=== PATIENT | male | born 1965 | race Caucasian/White ===

== ENCOUNTER 2017-07-03 05:27 | Inpatient (IN) | payer BC, MEDICARE ==
[2017-07-03] MEDS ORDERED: Acetaminophen 500 MG Tab PO ONE (05:32)
[2017-07-03] MEDS ORDERED: Scopolamine 1.5 MG Transdermal Patch TRDERM ONE (05:32)
[2017-07-03] MEDS ORDERED: Gabapentin 300 MG Cap PO ONE (05:32)
[2017-07-03] MEDS ORDERED: Celecoxib 200 MG Cap PO ONE (05:32)
[2017-07-03] MEDS ORDERED: Dextrose 5%-Lactated Ringers 1,000 ML IV SCH ×3 (05:34→23:15)
[2017-07-03] MEDS ORDERED: cefOXitin 2 GM in Sodium Chloride 0.9% 50 ML IV ONE ×2 (05:35→07:15)
[2017-07-03] MEDS ORDERED: cefOXitin 2 GM Vial ONE (06:45)
[2017-07-03] MEDS ORDERED: fentaNYL 250 MCG/5 ML SDV ONE ×2 (07:04→07:42)
[2017-07-03] MEDS ORDERED: Ondansetron 4 MG/2 ML SDV ONE (07:04)
[2017-07-03] MEDS ORDERED: Rocuronium 50 MG/5 ML Vial ONE ×2 (07:04→08:28)
[2017-07-03] MEDS ORDERED: Succinylcholine 200 MG/10 ML MDV ONE (07:04)
[2017-07-03] MEDS ORDERED: Propofol 200 MG/20 ML SDV ONE (07:04)
[2017-07-03] MEDS ORDERED: Neostigmine Methylsulfate 1 MG/ML 5 ML Syringe ONE (07:04)
[2017-07-03] MEDS ORDERED: Dexamethasone 4 MG/ML SDV ONE (07:04)
[2017-07-03] MEDS ORDERED: Glycopyrrolate 0.2 MG/ML 5 ML MDV ONE (07:04)
[2017-07-03] MEDS ORDERED: Albuterol/Ipratropium 3.0-0.5 MG/3 ML Neb Soln NEB ONE (07:05)
[2017-07-03] MEDS ORDERED: Ketamine 500 MG/5 ML MDV IV SCH (07:30)
[2017-07-03] MEDS ORDERED: Ropivacaine 60 ML, Dexamethasone 8 MG, EPINEPHrine 0.4 MG, Sodium Chloride 0.9% 17.6 ML NERVRT SCH ×4 (07:30)
[2017-07-03] MEDS ORDERED: Lidocaine 2% 100 MG/5 ML Syringe IVPUSH ONE (07:30)
[2017-07-03] MEDS ORDERED: Lidocaine 0.4%/D5W 2 GM/500 ML BAG IV SCH (07:30)
[2017-07-03] MEDS ORDERED: Insulin Aspart 100 Units/ML 3 ML Pen SUBCUT ONE ×2 (10:30→16:29)
[2017-07-03] MEDS: Insulin Aspart 100 Units/ML 3 ML Pen SUBCUT PRN ×2 (11:54→22:16)
[2017-07-03] MEDS ORDERED: Metoclopramide 10 MG/2 ML SDV IVPUSH PRN (12:00)
[2017-07-03] MEDS ORDERED: 50% Dextrose in Water 50 ML Syringe IVPUSH PRN (12:00)
[2017-07-03] MEDS ORDERED: Glucagon,Human Recombinant 1 MG Vial IM PRN (12:00)
[2017-07-03] MEDS ORDERED: Labetalol 20 MG/4 ML Syringe IVPUSH PRN (12:00)
[2017-07-03] MEDS ORDERED: diphenhydrAMINE 50 MG/ML SDV IVPUSH PRN (12:00)
[2017-07-03] MEDS ORDERED: Pantoprazole 40 MG Vial IVPUSH SCH (12:00)
[2017-07-03] MEDS ORDERED: Ondansetron 4 MG/2 ML SDV IVPUSH PRN (12:00)
[2017-07-03] MEDS ORDERED: hydrOXYzine HCl 100 MG/2 ML SDV IM PRN (12:00)
[2017-07-03] MEDS: Acetaminophen Soln 650 MG/20.3 ML UD Cup PO SCH ×2 (12:38→17:55)
[2017-07-03] MEDS: cefOXitin 2 GM in Sodium Chloride 0.9% 50 ML IV SCH ×2 (14:01→20:23)
[2017-07-03] MEDS: Gabapentin 250 MG/5 ML Solution ML 470 ML Bottle PO SCH ×2 (14:01→20:22)
[2017-07-03] MEDS: MVI, Adult with Vitamin K 10 ML, Thiamine 200 MG, Chromium/Copper/Mang/Selen/Zn 1 ML in... IV SCH ×8 (14:49→15:40)
[2017-07-03] MEDS: Heparin Sodium 5,000 Units/ML Vial SUBCUT SCH (16:01)
[2017-07-03] MEDS ORDERED: Insulin Detemir 100 Units/ML 3 ML Pen SUBCUT ONE (16:29)
[2017-07-03] MEDS: Metoprolol Tartrate 50 MG Tab PO SCH (20:29)
[2017-07-04] MEDS: Acetaminophen Soln 650 MG/20.3 ML UD Cup PO SCH ×6 (00:12→23:42)
[2017-07-04] MEDS: Heparin Sodium 5,000 Units/ML Vial SUBCUT SCH ×4 (00:12→23:41)
[2017-07-04] MEDS: cefOXitin 2 GM in Sodium Chloride 0.9% 50 ML IV SCH ×3 (01:30→14:04)
[2017-07-04] MEDS: Insulin Aspart 100 Units/ML 3 ML Pen SUBCUT PRN ×4 (04:34→23:41)
[2017-07-04] MEDS ORDERED: Iohexol 647 MG/ML 50 ML SDV PO SCH (05:30)
--- NOTE | 2017-07-04 06:53 | PCM.SURGPN ---
- General Info Date of Service: 07/04/17 Date of Surgery/Procedure: 07/03/17 POD#: 1 Functional Status: Reports: Pain Controlled, Tolerating Diet (step 1 diet), Ambulating, Urinating - Review of Systems General: Reports: No Symptoms HEENT: Reports: No Symptoms Pulmonary: Reports: No Symptoms Cardiovascular: Reports: No Symptoms Gastrointestinal: Reports: Abdominal Pain (LLQ) Genitourinary: Reports: No Symptoms Musculoskeletal: Reports: No Symptoms Skin: Reports: No Symptoms Neurological: Reports: No Symptoms Psychiatric: Reports: No Symptoms Systems Review Comment:: Patient reports that he is tired today but feeling well. He states that he has been up walking and using his IS. He denies flatus. - Patient Data Vitals - Most Recent: Last Vital Signs Temp 36.6 C 07/04/17 04:00 Pulse 77 07/04/17 06:00 Resp 18 07/04/17 06:00 BP 126/71 07/04/17 06:00 Pulse Ox 92 L 07/04/17 06:00 Weight - Most Recent: 140.977 kg I&O - Last 24 Hours: Intake & Output 07/03/17 07/03/17 07/04/17 14:59 22:59 06:59 Intake Total 661 1454 1382 Output Total 65 2225 2110 Balance 464 -951 -207 Lab Results Last 24 Hrs: Laboratory Results - last 24 hr 07/03/17 Range/Units 05:50 Hemoglobin A1c 8.7 H (4.5-6.2) % Med Orders - Current: Current Medications Acetaminophen (Tylenol) 650 mg PO Q6H [facility] Last Admin: 07/04/17 05:42 Dose: 650 mg Celecoxib (Celebrex) 200 mg PO DAILY@0800 [facility] Cyanocobalamin (Vitamin B12) 1,000 mcg IM ONETIME ONE Stop: 07/05/17 09:01 Dextrose/Water (Dextrose 50% In Water) 50 ml IVPUSH ONETIME PRN PRN Reason: ACCUCHECK LESS THAN 70 Diphenhydramine HCl (Benadryl) 25 - 50 mg IVPUSH Q4H PRN PRN Reason: ITCHING Gabapentin (Neurontin) 300 mg PO TID [facility] Last Admin: 07/03/17 20:22 Dose: 300 mg Glucagon (Glucagen) 1 mg IM ONETIME PRN PRN Reason: ACCUCHECK LESS THAN 70 Heparin Sodium (Porcine) (Heparin Sodium) 5,000 units SUBCUT Q8H [facility] Last Admin: 07/04/17 00:12 Dose: 5,000 units Hydroxyzine HCl (Vistaril) 75 - 100 mg IM Q4H PRN PRN Reason: pain Multivitamins/Minerals 10 ml/Thiamine HCl 200 mg/ Chromium/Copper/Manganese/ Seleni/Zn 1 ml/ Dextrose/Lactated Ringer's 1,013 mls @ 174.999 mls/hr IV DAILY@ 1600 [facility] Last Admin: 07/03/17 15:40 Dose: Not Given Cefoxitin Sodium 2 gm/ Sodium (Chloride) 50 mls @ 100 mls/hr IV Q6H [facility] Stop: 07/04/17 14:29 Last Admin: 07/04/17 01:30 Dose: 100 mls/hr Dextrose/Lactated Ringer's (Dextrose 5%-Lactated Ringers) 1,000 mls @ 80 mls/ hr IV ASDIRECTED [facility] Insulin Aspart (Novolog) 0 unit SUBCUT Q6H PRN; Protocol PRN Reason: PER CORRECTIONAL DOSING Last Admin: 07/04/17 04:34 Dose: 5 units Iohexol (Omnipaque-300) 50 ml PO .ASDIRECTED [facility] Last Admin: 07/04/17 06:07 Dose: 50 ml Labetalol HCl (Normodyne) 5 - 15 mg IVPUSH Q1H PRN PRN Reason: SBP over 160 OR DBP over 95 Metoclopramide HCl (Reglan) 10 mg IVPUSH Q6H PRN PRN Reason: NAUSEA NOT CONTROL BY ZOFRAN Metoprolol Tartrate (Lopressor) 50 mg PO BID [facility] Last Admin: 07/03/17 20:29 Dose: 50 mg Miscellaneous Information (Remove Patch) 1 ea TRDERM ONETIME ONE Stop: 07/05/17 10:01 Non-Formulary Medication (Nf Drug) 1 each TOP DAILY [facility] Scopolamine Patch (Check) 1 each TOP DAILY [facility] Stop: 07/05/17 12:01 Ondansetron HCl (Zofran) 4 mg IVPUSH Q4H PRN PRN Reason: Nausea/Vomiting Pantoprazole Sodium (Protonix Iv) 40 mg IVPUSH Q24H [facility] Last Admin: 07/03/17 12:35 Dose: 40 mg Discontinued Medications Acetaminophen (Tylenol Extra Strength) 1,000 mg PO ONETIME ONE Stop: 07/03/17 05:33 Last Admin: 07/03/17 06:25 Dose: 1,000 mg Albuterol/Ipratropium (Duoneb 3.0-0.5 Mg/3 Ml) 3 ml NEB ONETIME ONE Stop: 07/03/17 07:06 Last Admin: 07/03/17 07:12 Dose: 3 ml Cefoxitin Sodium (Mefoxin) Confirm Administered Dose 2 gm .ROUTE .STK-MED ONE Stop: 07/03/17 06:46 Last Admin: 07/03/17 09:15 Dose: 2 gm Celecoxib (Celebrex) 200 mg PO ONETIME ONE Stop: 07/03/17 05:33 Last Admin: 07/03/17 06:25 Dose: 200 mg Ropivacaine 60 ml/Dexamethasone 8 mg/Epinephrine HCl 0.4 mg/ Sodium Chloride 17.6 ml 0 ml NERVRT ASDIRECTED [facility] Last Admin: 07/03/17 07:50 Dose: 80 syringe Dexamethasone (Dexamethasone) Confirm Administered Dose 4 mg .ROUTE .STK-MED ONE Stop: 07/03/17 07:05 Fentanyl (Sublimaze) Confirm Administered Dose 250 mcg .ROUTE .STK-MED ONE Stop: 07/03/17 07:05 Fentanyl (Sublimaze) Confirm Administered Dose 250 mcg .ROUTE .STK-MED ONE Stop: 07/03/17 07:43 Gabapentin (Neurontin) 300 mg PO ONETIME ONE Stop: 07/03/17 05:33 Last Admin: 07/03/17 06:25 Dose: 300 mg Glycopyrrolate (Robinul) Confirm Administered Dose 1 mg .ROUTE .STK-MED ONE Stop: 07/03/17 07:05 Lidocaine HCl/Dextrose (Lidocaine 2 Gm/D5w 500 Ml) 2 gm in 500 mls @ 30 mls/hr IV .[id number] [facility] Stop: 07/04/17 00:09 Last Admin: 07/03/17 11:18 Dose: 2 mg/min, 30 mls/hr Ketamine HCl 100 mg/ Sodium (Chloride) 100 mls @ 21.6 mls/hr IV ASDIRECTED [facility] Dextrose/Lactated Ringer's (Dextrose 5%-Lactated Ringers) 1,000 mls @ 100 mls/ hr IV ASDIRECTED [facility] Last Admin: 07/03/17 06:58 Dose: 100 mls/hr Cefoxitin Sodium 2 gm/ Sodium (Chloride) 50 mls @ 100 mls/hr IV ONETIME ONE Stop: 07/03/17 07:44 Last Admin: 07/03/17 12:35 Dose: Not Given Insulin Human Regular 100 unit (/ Sodium Chloride) 100 mls @ 0 mls/hr IV TITRATE [facility]; Protocol Dextrose/Lactated Ringer's (Dextrose 5%-Lactated Ringers) 1,000 mls @ 175.004 mls/hr IV ASDIRECTED [facility] Last Admin: 07/03/17 20:25 Dose: 175.004 mls/hr Insulin Aspart (Novolog) 5 unit SUBCUT ONETIME ONE Stop: 07/03/17 10:31 Last Admin: 07/03/17 12:35 Dose: Not Given Insulin Aspart (Novolog) 20 unit SUBCUT ONETIME ONE Stop: 07/03/17 16:30 Last Admin: 07/03/17 16:46 Dose: 20 units Insulin Detemir (Levemir) 12 unit SUBCUT ONETIME ONE Stop: 07/03/17 16:30 Last Admin: 07/03/17 16:45 Dose: 12 units Ketamine HCl (Ketalar) 36 mg IV ASDIRECTED [facility] Lidocaine HCl (Xylocaine 2%) 145 mg IVPUSH ONETIME ONE Stop: 07/03/17 07:31 Last Admin: 07/03/17 11:30 Dose: Not Given Neostigmine Methylsulfate (Neostigmine) Confirm Administered Dose 5 mg .ROUTE .STK-MED ONE Stop: 07/03/17 07:05 Ondansetron HCl (Zofran) Confirm Administered Dose 4 mg .ROUTE .STK-MED ONE Stop: 07/03/17 07:05 Propofol (Diprivan 20 Ml) Confirm Administered Dose 200 mg .ROUTE .STK-MED ONE Stop: 07/03/17 07:05 Rocuronium [place] (Zemuron) Confirm Administered Dose 50 mg .ROUTE .STK-MED ONE Stop: 07/03/17 07:05 Rocuronium [place] (Zemuron) Confirm Administered Dose 50 mg .ROUTE .STK-MED ONE Stop: 04/30/18 08:29 Scopolamine (Transderm-Scop) 1.5 mg TRDERM Q72H ONE Stop: 07/03/17 05:33 Last Admin: 07/03/17 06:25 Dose: 1.5 mg Succinylcholine Chloride (Quelicin) Confirm Administered Dose 200 mg .ROUTE .STK -MED ONE Stop: 07/03/17 07:05 - Exam Wound/Incisions: Healing Well, No Drainage Quality Assessment: Urine Catheter, DVT Prophylaxis (SCDs) General: Alert, Oriented, Cooperative, No Acute Distress HEENT: Pupils Equal, Pupils Reactive Neck: Supple, Trachea Midline Lungs: Clear to Auscultation, Normal Respiratory Effort Cardiovascular: Regular Rate, Regular Rhythm GI/Abdominal Exam: Normal Bowel Sounds, Soft, Tender (LLQ with palpation) Extremities: Normal Inspection, Non-Tender, No Pedal Edema Skin: Warm, Dry, Intact Neurological: No New Focal Deficit Psy/Mental Status: Alert, Normal Affect, Normal Mood - Problem List & Annotations (1) Status post gastric bypass for obesity SNOMED Code(s): 217758347, 180735715, 578915345, [id number] Code(s): Z98.84 - BARIATRIC SURGERY STATUS Status: Acute Current Visit: Yes - Problem List Review Problem List Initiated/Reviewed/Updated: Yes - My Orders Last 24 Hours: Active Orders 24 hr Category Date Time Status Patient Status [ADT] Routine ADT 07/03/17 10:10 Active Ambulate [RC] ASDIRECTED Care 07/03/17 11:40 Active Cardiac Monitoring Discontinue [RC] Click to Edit Care 07/04/17 09:00 Active Cardiac Monitoring [RC] .As Directed Care 07/03/17 11:40 Active Communication Order [RC] Q4H Care 07/03/17 11:40 Active Communication Order [RC] ROUTINE Care 07/03/17 11:40 Active Head of Bed Elevation [RC] CONTINUOUS Care 07/03/17 11:40 Active Insert Urinary Catheter [OM.PC] Per Unit Routine Care 07/03/17 11:40 Ordered Insert Urinary Catheter [OM.PC] Per Unit Routine Care 07/03/17 11:40 Ordered Intake and Output [RC] ASDIRECTED Care 07/03/17 11:40 Active Notify Provider Intake and Out [RC] ASDIRECTED Care 07/03/17 11:40 Active Notify Provider [RC] PRN Care 07/03/17 11:40 Active Oxygen Therapy [RC] ASDIRECTED Care 07/03/17 11:40 Active Pulse Oximetry [RC] ASDIRECTED Care 07/03/17 11:40 Active RT BiPAP/CPAP [RC] ASDIRECTED Care 07/03/17 11:40 Active RT Incentive Spirometry [RC] ASDIRECTED Care 07/03/17 11:40 Active Turn, Cough, Deep Breathe [RC] Q1HWA Care 07/03/17 11:40 Active Up to Chair [RC] TIDMEALS Care 07/03/17 11:40 Active Urinary Catheter Assessment [RC] ASDIRECTED Care 07/03/17 11:41 Active Vital Signs [RC] Q1H Care 07/03/17 13:00 Active Consult to Bariatric Services [CONS] Routine Cons 07/03/17 11:40 Active Consult to [place] [CONS] Routine Cons 07/03/17 11:40 Active Consult to Pharmacy [CONS] Routine Cons 07/03/17 11:40 Active Respiratory Care Assess and Treatment [CONS] Routine Cons 07/03/17 11:40 Active Bariatric Diet [DIET] Diet 07/04/17 Breakfast Active UGI wo KUB [CR] Timed Exams 07/04/17 04:00 Ordered GLUCOSE POC LAB TO COLLECT [POC] Q6H Lab 07/04/17 10:00 Ordered GLUCOSE POC LAB TO COLLECT [POC] Q6H Lab 07/04/17 16:00 Ordered GLUCOSE POC LAB TO COLLECT [POC] Q6H Lab 07/04/17 22:00 Ordered GLUCOSE POC LAB TO COLLECT [POC] Q6H Lab 07/05/17 04:00 Ordered GLUCOSE POC LAB TO COLLECT [POC] Q6H Lab 07/05/17 10:00 Ordered GLUCOSE POC LAB TO COLLECT [POC] Q6H Lab 07/05/17 16:00 Ordered GLUCOSE POC LAB TO COLLECT [POC] Q6H Lab 07/05/17 22:00 Ordered GLUCOSE POC LAB TO COLLECT [POC] Q6H Lab 07/06/17 04:00 Ordered GLUCOSE POC LAB TO COLLECT [POC] Q6H Lab 07/06/17 10:00 Ordered Acetaminophen [Tylenol] Med 07/03/17 12:00 Active 650 mg PO Q6H Celecoxib [CeleBREX] Med 07/04/17 08:00 Active 200 mg PO DAILY@0800 Cyanocobalamin (Vitamin B12) [Vitamin B12] Med 07/05/17 09:00 Once 1,000 mcg IM ONETIME ONE Dextrose 5%-Lactated Ringers 1,000 ml Med 07/03/17 23:15 Active IV ASDIRECTED Dextrose 50% in Water Med 07/03/17 12:00 Active 50 ml IVPUSH ONETIME PRN Gabapentin [Neurontin] Med 07/03/17 14:00 Active 300 mg PO TID Glucagon,Human Recombinant [GlucaGen] Med 07/03/17 12:00 Active 1 mg IM ONETIME PRN Heparin Sodium Med 07/03/17 16:00 Active 5,000 units SUBCUT Q8H Insulin Aspart [NovoLOG] Med 07/03/17 12:00 Active 0 unit SUBCUT Q6H PRN Iohexol [Omnipaque-300] Med 07/04/17 05:30 Active 50 ml PO .ASDIRECTED Labetalol [Normodyne] Med 07/03/17 12:00 Active 5 - 15 mg IVPUSH Q1H PRN MVI, Adult with Vitamin K [Infuvite Adult] 10 ml Med 07/03/17 16:00 Active Thiamine [Vitamin B-1] 200 mg Chromium/Copper/[place]/Selen/Zn [Multitrace-5 Concentrate ] 1 ml Dextrose 5%-Lactated Ringers 1,000 ml IV DAILY@1600 Metoclopramide [Reglan] Med 07/03/17 12:00 Active 10 mg IVPUSH Q6H PRN Metoprolol Tartrate [Lopressor] Med 07/03/17 21:00 Active 50 mg PO BID Non-Formulary Medication [NF Drug] Med 07/03/17 12:00 Active 1 each TOP DAILY Non-Formulary Medication [NF Drug] Med 07/04/17 09:00 Active 1 each TOP DAILY Ondansetron [Zofran] Med 07/03/17 12:00 Active 4 mg IVPUSH Q4H PRN Pantoprazole [ProTONIX IV] Med 07/03/17 12:00 Active 40 mg IVPUSH Q24H Remove Patch Med 07/05/17 10:00 Once 1 ea TRDERM ONETIME ONE cefOXitin [Mefoxin] 2 gm Med 07/03/17 14:00 Active Sodium Chloride 0.9% [Normal Saline] 50 ml IV Q6H diphenhydrAMINE [Benadryl] Med 07/03/17 12:00 Active 25 - 50 mg IVPUSH Q4H PRN hydrOXYzine HCl [Vistaril] Med 07/03/17 12:00 Active 75 - 100 mg IM Q4H PRN Abdominal Binder [OM.PC] Routine Oth 07/03/17 11:40 Ordered Oral Care [OM.PC] BID Oth 07/03/17 11:45 Ordered Oral Care [OM.PC] BID Oth 07/04/17 11:45 Ordered PT Screening [OM.PC] Routine Oth 07/03/17 11:40 Active Sequential Compression Device [OM.PC] Routine Oth 07/03/17 11:40 Ordered Specialty Bed [OM.PC] Routine Oth 07/03/17 11:40 Ordered Resuscitation Status Routine Resus Stat 07/03/17 11:40 Ordered Medication Orders Acetaminophen (Tylenol) 650 mg PO Q6H [facility] Last Admin: 07/04/17 05:42 Dose: 650 mg Admin: 07/04/17 00:12 Dose: 650 mg Admin: 07/03/17 17:55 Dose: 650 mg Admin: 07/03/17 12:38 Dose: 650 mg Celecoxib (Celebrex) 200 mg PO DAILY@0800 [facility] Cyanocobalamin (Vitamin B12) 1,000 mcg IM ONETIME ONE Stop: 07/05/17 09:01 Dextrose/Water (Dextrose 50% In Water) 50 ml IVPUSH ONETIME PRN PRN Reason: ACCUCHECK LESS THAN 70 Diphenhydramine HCl (Benadryl) 25 - 50 mg IVPUSH Q4H PRN PRN Reason: ITCHING Gabapentin (Neurontin) 300 mg PO TID [facility] Last Admin: 07/03/17 20:22 Dose: 300 mg Admin: 07/03/17 14:01 Dose: 300 mg Glucagon (Glucagen) 1 mg IM ONETIME PRN PRN Reason: ACCUCHECK LESS THAN 70 Heparin Sodium (Porcine) (Heparin Sodium) 5,000 units SUBCUT Q8H [facility] Last Admin: 07/04/17 00:12 Dose: 5,000 units Admin: 07/03/17 16:01 Dose: 5,000 units Hydroxyzine HCl (Vistaril) 75 - 100 mg IM Q4H PRN PRN Reason: pain Multivitamins/Minerals 10 ml/Thiamine HCl 200 mg/ Chromium/Copper/Manganese/ Seleni/Zn 1 ml/ Dextrose/Lactated Ringer's 1,013 mls @ 174.999 mls/hr IV DAILY@ 1600 [facility] Last Admin: 07/03/17 15:40 Dose: Admin: 07/03/17 14:49 Dose: 174.999 mls/hr Cefoxitin Sodium 2 gm/ Sodium (Chloride) 50 mls @ 100 mls/hr IV Q6H [facility] Stop: 07/04/17 14:29 Last Admin: 07/04/17 01:30 Dose: 100 mls/hr Admin: 07/03/17 20:23 Dose: 100 mls/hr Admin: 07/03/17 14:01 Dose: 100 mls/hr Dextrose/Lactated Ringer's (Dextrose 5%-Lactated Ringers) 1,000 mls @ 80 mls/ hr IV ASDIRECTED [facility] Insulin Aspart (Novolog) 0 unit SUBCUT Q6H PRN; Protocol PRN Reason: PER CORRECTIONAL DOSING Last Admin: 07/04/17 04:34 Dose: 5 units Admin: 07/03/17 22:16 Dose: 9 units Admin: 07/03/17 11:54 Dose: 9 units Iohexol (Omnipaque-300) 50 ml PO .ASDIRECTED [facility] Last Admin: 07/04/17 06:07 Dose: 50 ml Labetalol HCl (Normodyne) 5 - 15 mg IVPUSH Q1H PRN PRN Reason: SBP over 160 OR DBP over 95 Metoclopramide HCl (Reglan) 10 mg IVPUSH Q6H PRN PRN Reason: NAUSEA NOT CONTROL BY ZOFRAN Metoprolol Tartrate (Lopressor) 50 mg PO BID [facility] Last Admin: 07/03/17 20:29 Dose: 50 mg Miscellaneous Information (Remove Patch) 1 ea TRDERM ONETIME ONE Stop: 07/05/17 10:01 Non-Formulary Medication (Nf Drug) 1 each TOP DAILY [facility] Scopolamine Patch (Check) 1 each TOP DAILY [facility] Stop: 07/05/17 12:01 Ondansetron HCl (Zofran) 4 mg IVPUSH Q4H PRN PRN Reason: Nausea/Vomiting Pantoprazole Sodium (Protonix Iv) 40 mg IVPUSH Q24H [facility] Last Admin: 07/03/17 12:35 Dose: 40 mg - Assessment Assessment (Free Text/Narrative):: S/p laparoscopic amanda-en-y gastric bypass and hiatal hernia repair - Plan Plan (Free Text/Narrative):: -Step 2 diet today. -Flomax 0.4 mg PO this am and 0.4 mg q HS starting tonight - split. -Lasix 20 mg PO q am - intact. -Wellbutrin IR 150 mg PO BID - split. -Flexeril 10 mg PO TID prn for muscle spasms - split. -NTG SL 0.4 mg prn for chest pain. -Lisinopril 20 mg PO daily. -Change IV to LR @ 80 mL/hr. -Remove nunez catheter tomorrow. -Discontinue cardiac monitoring.
[2017-07-04] MEDS ORDERED: Cyclobenzaprine 10 MG Tab PO PRN (08:31)
[2017-07-04] MEDS ORDERED: Nitroglycerin 0.4 MG Tab.SL SL PRN (08:33)
[2017-07-04] MEDS ORDERED: Lactated Ringers 1,000 ML IV SCH (08:45)
[2017-07-04] MEDS: Celecoxib 200 MG Cap PO SCH (08:59)
[2017-07-04] MEDS ORDERED: Tamsulosin 0.4 MG Cap.ER PO ONE (09:00)
[2017-07-04] MEDS: Metoprolol Tartrate 50 MG Tab PO SCH ×2 (09:00→21:10)
[2017-07-04] MEDS ORDERED: Non-Formulary Medication 1 Each TOP SCH (09:00)
[2017-07-04] MEDS: Gabapentin 250 MG/5 ML Solution ML 470 ML Bottle PO SCH ×3 (09:05→21:09)
--- NOTE | 2017-07-04 09:13 | CR ---
UGI wo KUB CLINICAL HISTORY: Status post Imelda-en-Y FINDINGS: There is mild gaseous distention of the Imelda loop. There is no evidence of obstruction. No extravasation is seen. IMPRESSION: Status post Imelda-en-Y with no obstruction or leakage identified
--- NOTE | 2017-07-04 10:44 | PN ---
DATE OF SERVICE: 07/04/2017 The patient has been clinically stable overnight. Initially, blood sugars were quite high, but I think these will come down pretty well today. The patient underwent a laparoscopic Imelda-en-Y gastric bypass yesterday along with repair of hiatal hernia. Clinically, he is doing fairly well. His urine output was very high, and we have already backed down on that. He did retain urine and has a Walton catheter in place. We will give him some Flomax this morning and then begin that at bedtime. I think, his blood sugars are likely going to normalize without any additional active treatment. Otherwise, maximize activity and work with pulmonary toilet. Cem Mesa MD /[id number]
[2017-07-04] MEDS: Lisinopril 20 MG Tab PO SCH (10:52)
[2017-07-04] MEDS: Furosemide 20 MG Tab PO SCH (10:52)
[2017-07-04] MEDS: SCOPOLAMINE PATCH CHECK TOP SCH (10:53)
[2017-07-04] MEDS ORDERED: Pantoprazole 40 MG Delayed-Release Granules 1 Packet PO SCH (11:00)
[2017-07-04] MEDS ORDERED: MVI, Adult with Vitamin K 10 ML, Thiamine 100 MG, Chromium/Copper/Mang/Selen/Zn 1 ML in... IV SCH ×4 (16:00)
[2017-07-04] MEDS ORDERED: Bisacodyl 5 MG Tab PO PRN (18:40)
[2017-07-04] MEDS ORDERED: Magnesium Hydroxide 400 MG/5 ML Susp 30 ML Cup PO ONE (18:45)
[2017-07-04] MEDS ORDERED: Bisacodyl 5 MG Tab PO ONE (18:45)
[2017-07-04] MEDS ORDERED: Tamsulosin 0.4 MG Cap.ER PO SCH (21:00)
[2017-07-05] MEDS: Insulin Aspart 100 Units/ML 3 ML Pen SUBCUT PRN (04:38)
[2017-07-05] MEDS: Furosemide 20 MG Tab PO SCH ×2 (07:43→08:00)
[2017-07-05] MEDS: Acetaminophen Soln 650 MG/20.3 ML UD Cup PO SCH (07:43)
[2017-07-05] MEDS: Celecoxib 200 MG Cap PO SCH (07:43)
[2017-07-05] MEDS: Heparin Sodium 5,000 Units/ML Vial SUBCUT SCH (07:46)
[2017-07-05] MEDS ORDERED: Furosemide 20 MG/2 ML VIAL IVPUSH ONE (08:30)
--- NOTE | 2017-07-05 08:51 | PCM.DCSUM1 ---
Discharge Summary - Hospital Course Free Text/Narrative:: Patient admitted on 07/03/2017 for laparoscopic amanda-en-y gastric bypass Brief History: Patient underwent laparoscopic amanda-en-y gastric bypass and hiatal hernia repair on 07/03/2017. Post-operatively his UGI showed no leak. He has been tolerating his diet well and passing gas. No BM prior to discharge. stated this is normal for him with his spinal injury, and that he takes stool softeners at baseline. He will continue these. He needed a nunez catheter due to difficulty with urination during his admission. He stated that he takes lasix at home to help with this. Lasix was ordered during his stay, and was given on morning of discharge. He was discharged home on metformin 500 mg BID with instructions to check blood sugars. RD saw patient for glucometer administration and education prior to discharge. - Discharge Data Discharge Date: 07/05/17 Discharge Disposition: Home, Self-Care 01 Condition: Good - Discharge Diagnosis/Problem(s) (1) Status post gastric bypass for obesity SNOMED Code(s): 290710385, [id number], [id number], [id number] ICD Code: Z98.84 - BARIATRIC SURGERY STATUS Status: Acute Current Visit: Yes - Patient Summary/Data Consults: Consultations 07/03/17 11:40 Consult to Bariatric Services [CONS] Routine Comment: Consult to Cardiovascular Rn [CONS] Routine Comment: Physician Instructions: Quantity: Consult to Pharmacy [CONS] Routine Comment: Physician Instructions: Quantity: Respiratory Care Assess and Treatment [CONS] Routine Comment: Physician Instructions: Post-Op Pneumonia Prevention - Patient Instructions Diet, Other: Step 2 Gastric Bypass Diet with NO CEREAL until 07/19/17 Activity: As Tolerated, No Lifting Over 10 Pounds (for 2 weeks ) Driving: Do Not Drive (for 1 week ) Showering/Bathing: May Shower Wound/Incision Care: Keep Operative Site/Wound Site Clean and Dry Notify Provider of: Fever, Increased Pain, Nausea and/or Vomiting Other/Special Instructions: Use incentive inspirometer 10 times every hour while awake for 1 week. Check blood sugars twice a day and record results and bring to clinic appointment. Call [facility] at [phone] with results of blood sugars - Discharge Plan Prescriptions/Med Rec: Bisacodyl [Dulcolax] 10 mg PO BID PRN #60 tablet PRN Reason: Constipation Magnesium Hydroxide [Milk of Magnesia] 30 ml PO BID #100 ml metFORMIN [Glucophage XR] 500 mg PO BIDMEALS #60 tab.er Home Medications: Home Meds Aspirin 325 mg PO DAILY 06/29/17 [History] Baclofen 20 mg PO ASDIRECTED 06/29/17 [History] Cyclobenzaprine [Flexeril] 10 mg PO TID PRN 06/29/17 [History] Furosemide [Lasix] 20 mg PO BID 06/29/17 [History] Gabapentin [Neurontin] 300 mg PO TID 06/29/17 [History] Lisinopril 20 mg PO DAILY 06/29/17 [History] Metoprolol Tartrate [Lopressor] 50 mg PO Q12HR 06/29/17 [History] Nitroglycerin 0.3 mg SL ASDIRECTED PRN 06/29/17 [History] Rosuvastatin [Crestor] 40 mg PO DAILY 06/29/17 [History] Tamsulosin HCl [Flomax] 0.4 mg PO DAILY 06/29/17 [History] Teriparatide [Forteo] 0.08 ml SQ DAILY 06/29/17 [History] Varenicline [Chantix] 1 mg PO BIDPC 06/29/17 [History] buPROPion [Wellbutrin SR] 150 mg PO BID 06/29/17 [History] Acetaminophen [Tylenol] 650 mg PO Q6H cup 07/05/17 [Rx] Bisacodyl [Dulcolax] 10 mg PO BID PRN #60 tablet 07/05/17 [Rx] Celecoxib [CeleBREX] 200 mg PO DAILY@0800 cap 07/05/17 [Rx] Magnesium Hydroxide [Milk of Magnesia] 30 ml PO BID #100 ml 07/05/17 [Rx] metFORMIN [Glucophage XR] 500 mg PO BIDMEALS #60 tab.er 07/05/17 [Rx] Referrals: Renetta Tsai PA-C [[facility] [employer]] - 07/18/17 10:00 am ([place], [place]) - General Info Functional Status: Reports: Pain Controlled, Tolerating Diet, Ambulating, Incentive Spirometry - Review of Systems General: Reports: No Symptoms HEENT: Reports: No Symptoms Pulmonary: Reports: No Symptoms Cardiovascular: Reports: No Symptoms Gastrointestinal: Reports: Abdominal Pain (LLQ), Flatus Genitourinary: Reports: Retention (due to spinal injury) Musculoskeletal: Reports: Back Pain (chronic) Skin: Reports: No Symptoms Neurological: Reports: No Symptoms Psychiatric: Reports: No Symptoms Systems Review Comment: Patient reports that he feels well today and is ready for discharge. He states that he needs lasix to help with urination as he experiences retention after his spinal cord injury. He denies having any other concerns at this time. - Patient Data Vitals - Most Recent: Last Vital Signs Temp 37.1 C 07/05/17 07:36 Pulse 88 07/05/17 07:36 Resp 17 07/05/17 07:36 BP 142/61 H 07/05/17 07:36 Pulse Ox 94 L 07/05/17 07:42 Weight - Most Recent: 140.977 kg I&O - Last 24 hours: Intake & Output 07/04/17 07/05/17 07/05/17 22:59 06:59 14:59 Intake Total 988 400 Output Total 770 1210 Balance 218 -810 Med Orders - Current: Current Medications Acetaminophen (Tylenol) 650 mg PO Q6H [facility] Last Admin: 07/05/17 07:43 Dose: 650 mg Bisacodyl (Dulcolax) 10 mg PO BID PRN PRN Reason: Constipation Bupropion HCl (Wellbutrin) 150 mg PO BID [facility] Last Admin: 07/04/17 21:09 Dose: 150 mg Celecoxib (Celebrex) 200 mg PO DAILY@0800 [facility] Last Admin: 07/05/17 07:43 Dose: 200 mg Cyanocobalamin (Vitamin B12) 1,000 mcg IM ONETIME ONE Stop: 07/05/17 09:01 Cyclobenzaprine HCl (Flexeril) 10 mg PO TID PRN PRN Reason: Muscle Spasm Dextrose/Water (Dextrose 50% In Water) 50 ml IVPUSH ONETIME PRN PRN Reason: ACCUCHECK LESS THAN 70 Diphenhydramine HCl (Benadryl) 25 - 50 mg IVPUSH Q4H PRN PRN Reason: ITCHING Furosemide (Lasix) 20 mg PO DAILY [facility] Last Admin: 07/05/17 08:00 Dose: Not Given Gabapentin (Neurontin) 300 mg PO TID [facility] Last Admin: 07/04/17 21:09 Dose: 300 mg Glucagon (Glucagen) 1 mg IM ONETIME PRN PRN Reason: ACCUCHECK LESS THAN 70 Heparin Sodium (Porcine) (Heparin Sodium) 5,000 units SUBCUT Q8H [facility] Last Admin: 07/05/17 07:46 Dose: 5,000 units Hydroxyzine HCl (Vistaril) 75 - 100 mg IM Q4H PRN PRN Reason: pain Multivitamins/Minerals 10 ml/Thiamine HCl 100 mg/ Chromium/Copper/Manganese/ Seleni/Zn 1 ml/ Lactated Ringer's 1,012 mls @ 80 mls/hr IV DAILY@1600 [facility] Last Admin: 07/04/17 17:21 Dose: 80 mls/hr Lactated Ringer's (Ringers, Lactated) 1,000 mls @ 80 mls/hr IV ASDIRECTED [facility] Last Admin: 07/04/17 09:01 Dose: 80 mls/hr Insulin Aspart (Novolog) 0 unit SUBCUT Q6H PRN; Protocol PRN Reason: PER CORRECTIONAL DOSING Last Admin: 07/05/17 04:38 Dose: 7 units Labetalol HCl (Normodyne) 5 - 15 mg IVPUSH Q1H PRN PRN Reason: SBP over 160 OR DBP over 95 Lisinopril (Prinivil) 20 mg PO DAILY [facility] Last Admin: 07/04/17 10:52 Dose: 20 mg Metoclopramide HCl (Reglan) 10 mg IVPUSH Q6H PRN PRN Reason: NAUSEA NOT CONTROL BY ZOFRAN Metoprolol Tartrate (Lopressor) 50 mg PO BID [facility] Last Admin: 07/04/17 21:10 Dose: 50 mg Miscellaneous Information (Remove Patch) 1 ea TRDERM ONETIME ONE Stop: 07/05/17 10:01 Nitroglycerin (Nitrostat) 0.4 mg SL ASDIRECTED PRN PRN Reason: Chest Pain Scopolamine Patch (Check) 1 each TOP DAILY [facility] Stop: 07/05/17 12:01 Last Admin: 07/04/17 10:53 Dose: Not Given Ondansetron HCl (Zofran) 4 mg IVPUSH Q4H PRN PRN Reason: Nausea/Vomiting Pantoprazole Sodium (Protonix Granules) 40 mg PO Q24H [facility] Last Admin: 07/04/17 10:53 Dose: 40 mg Tamsulosin HCl (Flomax) 0.4 mg PO BEDTIME [facility] Last Admin: 07/04/17 21:11 Dose: 0.4 mg Discontinued Medications Acetaminophen (Tylenol Extra Strength) 1,000 mg PO ONETIME ONE Stop: 07/03/17 05:33 Last Admin: 07/03/17 06:25 Dose: 1,000 mg Albuterol/Ipratropium (Duoneb 3.0-0.5 Mg/3 Ml) 3 ml NEB ONETIME ONE Stop: 07/03/17 07:06 Last Admin: 07/03/17 07:12 Dose: 3 ml Bisacodyl (Dulcolax) 10 mg PO ONETIME ONE Stop: 07/04/17 18:46 Last Admin: 07/04/17 18:49 Dose: 10 mg Cefoxitin Sodium (Mefoxin) Confirm Administered Dose 2 gm .ROUTE .STK-MED ONE Stop: 07/03/17 06:46 Last Admin: 07/03/17 09:15 Dose: 2 gm Celecoxib (Celebrex) 200 mg PO ONETIME ONE Stop: 07/03/17 05:33 Last Admin: 07/03/17 06:25 Dose: 200 mg Ropivacaine 60 ml/Dexamethasone 8 mg/Epinephrine HCl 0.4 mg/ Sodium Chloride 17.6 ml 0 ml NERVRT ASDIRECTED [facility] Last Admin: 07/03/17 07:50 Dose: 80 syringe Dexamethasone (Dexamethasone) Confirm Administered Dose 4 mg .ROUTE .STK-MED ONE Stop: 07/03/17 07:05 Fentanyl (Sublimaze) Confirm Administered Dose 250 mcg .ROUTE .STK-MED ONE Stop: 07/03/17 07:05 Fentanyl (Sublimaze) Confirm Administered Dose 250 mcg .ROUTE .STK-MED ONE Stop: 07/03/17 07:43 Furosemide (Lasix) 20 mg IVPUSH ONETIME ONE Stop: 07/05/17 08:31 Gabapentin (Neurontin) 300 mg PO ONETIME ONE Stop: 07/03/17 05:33 Last Admin: 07/03/17 06:25 Dose: 300 mg Glycopyrrolate (Robinul) Confirm Administered Dose 1 mg .ROUTE .STK-MED ONE Stop: 07/03/17 07:05 Lidocaine HCl/Dextrose (Lidocaine 2 Gm/D5w 500 Ml) 2 gm in 500 mls @ 30 mls/hr IV .[id number] [facility] Stop: 07/04/17 00:09 Last Admin: 07/03/17 11:18 Dose: 2 mg/min, 30 mls/hr Ketamine HCl 100 mg/ Sodium (Chloride) 100 mls @ 21.6 mls/hr IV ASDIRECTED [facility] Dextrose/Lactated Ringer's (Dextrose 5%-Lactated Ringers) 1,000 mls @ 100 mls/ hr IV ASDIRECTED [facility] Last Admin: 07/03/17 06:58 Dose: 100 mls/hr Cefoxitin Sodium 2 gm/ Sodium (Chloride) 50 mls @ 100 mls/hr IV ONETIME ONE Stop: 07/03/17 07:44 Last Admin: 07/03/17 12:35 Dose: Not Given Insulin Human Regular 100 unit (/ Sodium Chloride) 100 mls @ 0 mls/hr IV TITRATE [facility]; Protocol Dextrose/Lactated Ringer's (Dextrose 5%-Lactated Ringers) 1,000 mls @ 175.004 mls/hr IV ASDIRECTED [facility] Last Admin: 07/03/17 20:25 Dose: 175.004 mls/hr Multivitamins/Minerals 10 ml/Thiamine HCl 200 mg/ Chromium/Copper/Manganese/ Seleni/Zn 1 ml/ Dextrose/Lactated Ringer's 1,013 mls @ 174.999 mls/hr IV DAILY@ 1600 [facility] Last Admin: 07/03/17 15:40 Dose: Not Given Cefoxitin Sodium 2 gm/ Sodium (Chloride) 50 mls @ 100 mls/hr IV Q6H [facility] Stop: 07/04/17 14:29 Last Admin: 07/04/17 14:04 Dose: 100 mls/hr Dextrose/Lactated Ringer's (Dextrose 5%-Lactated Ringers) 1,000 mls @ 80 mls/ hr IV ASDIRECTED [facility] Insulin Aspart (Novolog) 5 unit SUBCUT ONETIME ONE Stop: 07/03/17 10:31 Last Admin: 07/03/17 12:35 Dose: Not Given Insulin Aspart (Novolog) 20 unit SUBCUT ONETIME ONE Stop: 07/03/17 16:30 Last Admin: 07/03/17 16:46 Dose: 20 units Insulin Detemir (Levemir) 12 unit SUBCUT ONETIME ONE Stop: 07/03/17 16:30 Last Admin: 07/03/17 16:45 Dose: 12 units Iohexol (Omnipaque-300) 50 ml PO .ASDIRECTED [facility] Last Admin: 07/04/17 06:07 Dose: 50 ml Ketamine HCl (Ketalar) 36 mg IV ASDIRECTED [facility] Lidocaine HCl (Xylocaine 2%) 145 mg IVPUSH ONETIME ONE Stop: 07/03/17 07:31 Last Admin: 07/03/17 11:30 Dose: Not Given Magnesium Hydroxide (Milk Of Magnesia) 30 ml PO ONETIME ONE Stop: 07/04/17 18:46 Last Admin: 07/04/17 18:49 Dose: 30 ml Neostigmine Methylsulfate (Neostigmine) Confirm Administered Dose 5 mg .ROUTE .STK-MED ONE Stop: 07/03/17 07:05 Ondansetron HCl (Zofran) Confirm Administered Dose 4 mg .ROUTE .STK-MED ONE Stop: 07/03/17 07:05 Pantoprazole Sodium (Protonix Iv) 40 mg IVPUSH Q24H [facility] Last Admin: 07/03/17 12:35 Dose: 40 mg Propofol (Diprivan 20 Ml) Confirm Administered Dose 200 mg .ROUTE .STK-MED ONE Stop: 07/03/17 07:05 Rocuronium [place] (Zemuron) Confirm Administered Dose 50 mg .ROUTE .STK-MED ONE Stop: 07/03/17 07:05 Rocuronium [place] (Zemuron) Confirm Administered Dose 50 mg .ROUTE .STK-MED ONE Stop: 07/03/17 08:29 Scopolamine (Transderm-Scop) 1.5 mg TRDERM Q72H ONE Stop: 07/03/17 05:33 Last Admin: 07/03/17 06:25 Dose: 1.5 mg Succinylcholine Chloride (Quelicin) Confirm Administered Dose 200 mg .ROUTE .STK -MED ONE Stop: 07/03/17 07:05 Tamsulosin HCl (Flomax) 0.4 mg PO ONETIME ONE Stop: 07/04/17 09:01 Last Admin: 07/04/17 10:52 Dose: 0.4 mg - Exam General: Reports: Alert, Oriented, Cooperative, No Acute Distress HEENT: Reports: Pupils Equal, Pupils Reactive Neck: Reports: Supple, Trachea Midline Lungs: Reports: Clear to Auscultation, Normal Respiratory Effort Cardiovascular: Reports: Regular Rate, Regular Rhythm GI/Abdominal Exam: Normal Bowel Sounds, Soft, Tender (LLQ with palpation. Rates pain 4/10) (Male) Exam: Deferred Rectal (Males) Exam: Deferred Back Exam: Reports: Normal Inspection Extremities: Normal Inspection, Non-Tender, No Pedal Edema Skin: Reports: Warm, Dry, Intact Wound/Incisions: Reports: Healing Well, No Drainage Neurological: Reports: No New Focal Deficit Psy/Mental Status: Reports: Alert, Normal Affect, Normal Mood Discharge Operative/Procedures - Procedures Performed Operations: laparoscopic amanda-en-y gastric bypass and hiatal hernia repair on
[2017-07-05] MEDS: Gabapentin 250 MG/5 ML Solution ML 470 ML Bottle PO SCH (09:00)
[2017-07-05] MEDS: Metoprolol Tartrate 50 MG Tab PO SCH (09:00)
[2017-07-05] MEDS: Lisinopril 20 MG Tab PO SCH (09:00)
[2017-07-05] MEDS ORDERED: Cyanocobalamin (Vitamin B12) 1,000 MCG/ML SDV IM ONE (09:00)
[2017-07-05] MEDS: SCOPOLAMINE PATCH CHECK TOP SCH (09:00)
--- NOTE | 2017-07-13 08:05 | OR ---
DATE OF PROCEDURE: 07/03/2017 1. Extreme fatty infiltration of small bowel mesentery requiring small bowel resection to allow adequate mobility of the jejunojejunostomy for completion of Imelda-en-Y gastric bypass. 2. Mediastinal lipoma. 3. Paraesophageal diaphragmatic hernia. OPERATIVE PROCEDURE: 1. Laparoscopic Imelda-en-Y gastric bypass with long limb gastroenterostomy (76774). 2. Jani-Cut needle liver biopsy (87405). 3. Additional small bowel resection to facilitate adequate mobility of the jejunojejunostomy to complete Imelda-en-Y gastric bypass (76815). 4. Repair of paraesophageal diaphragmatic hernia (42725). 5. Excision of mediastinal lipoma (74837). ANESTHESIA: General. ASSISTANTS: Renetta Tsai PA-C and KAREEM Foster. INDICATION FOR PROCEDURE: This is a 51-year-old male presenting with longstanding morbid obesity and increasingly significant comorbidities. After preoperative evaluation and discussion, he wished to proceed with a gastric bypass procedure. Potential risks including bleeding, infection, leaks from various GI tract closures, problems with bowel obstruction over time, as well as possibility of cardiopulmonary, septic, or hemorrhagic complications leading to were discussed, and the patient wishes to proceed. DETAILS OF PROCEDURE: The patient was taken to the operating room. After general endotracheal anesthesia was induced, he was converted to a lithotomy position. Orogastric tube was placed and the abdomen prepped and draped. At 15 cm inferior, 5 cm left of xiphoid process, a transverse incision was made and peritoneal cavity entered under direct vision with Optiview trocar inflated to 15 mmHg pressure of CO2. Laparoscope was reinserted. No underlying trocar insertion site injuries were seen. Following this, bilateral transversus abdominis plane blocks were placed in the subcostal location with direct visualization of the needle in the correct plane and injection of a standard solution bilaterally. Following this, 5 additional trocars were placed through the upper and mid abdomen and general exploration undertaken. The patient was noted to have a quite marked hepatomegaly with liver being grossly fatty infiltrated. Jani-Cut needle biopsies were obtained from the left lobe of the liver. Minimal bleeding from the biopsy sites was controlled with electrocautery. At this point, the omentum was divided up to the level of the transverse colon. This allowed identification of the small bowel to the ligament of Treitz. Small bowel was then traced out 200 cm distal to that point, was divided transversely with a ARSENIO stapler. Small bowel to that point was noted to be quite immobile due to extreme fat infiltration of the small bowel mesentery. This was felt to make the jejunojejunostomy poorly mobile and putting the subsequent gastrojejunostomy at risk due to tension. Given this, around 10 cm of the biliopancreatic limb was then divided. Initially the underlying mesentery was divided with Harmonic scalpel, and the bowel then divided with a ARSENIO stapler as well, then this small bowel specimen was delivered from the field. This subsequently allowed marked increased mobility of the jejunojejunostomy to allow relatively tension-free formation of the gastrojejunostomy. The small bowel was then traced out 150 cm distal to that point where the [id number]-yagz enteroenterostomy was accomplished with an internal firing of the Endo-ARSENIO 60 mm stapler. The common opening was then closed transversely with the same stapler. The angles were anastomosed and the mesenteric defect approximated with some 0 Ethibond stitch, along with fibrin sealant. The divided end of the Imelda limb was from the mesentery for a few centimeters. This then allowed the visibly mobile jejunojejunostomy to be brought upward, allowing the Imelda limb to come up to the esophagogastric junction with minimal tension. At this point, the liver was retracted anteriorly. The patient was noted to have a moderate- sized paraesophageal diaphragmatic hernia with prolapse of some perigastric fat, the gastric fundus, and a tongue of omentum into a plane anterior to the course of the esophagus. This was reduced. The peritoneum overlying it was excised and reflected downward. An anterior repair of the diaphragmatic hernia was then accomplished with 0 Ethibond sutures, reinforced with PTFE pledgets. During the course of the dissection, a mediastinal lipoma was encountered and this was excised and sent as a separate specimen. The gastrointestinal catheter was then inflated to 15 mL and pulled up snugly against the EG junction. Gastric wall over the apex of the balloon was then marked with electrocautery, and balloon catheter deflated and pulled up in the esophagus. The lesser omental tissue adjacent to the gastric cardia was incised, allowing dissection behind the stomach at that level. Pouch formation was initiated with a transverse firing of the ARSENIO stapler at the level of the cauterized markel of the gastric cardia. Pouch was then completed with additional firings of ARSENIO stapler up to and through the angle of His. Upon completion of the pouch, both staple lines were noted to be intact. The anvil of a 25 mm EEA stapler was attached to Hindman sump type tube. The latter was brought down through the mouth and taken out through a small opening in the gastric pouch, allowing the anvil likewise to be pulled down to within the gastric pouch. The divided end of the Imelda limb was then opened and main body of the EEA stapler passed several centimeters into the lumen of the small bowel, brought up the anvil, united with it, thus creating the gastrojejunostomy. Upon removal of the stapler, double donuts of mucosa were noted within it, and the small bowel was closed off with a vascular staple line. Gastrojejunostomy was reinforced with some 3-0 Vicryl seromuscular stitch, along with fibrin sealant. Leak test was accomplished with injection of 120 mL of air in the gastric pouch, while submerged with cefoxitin-containing saline solution. No leaks were identified. A single Alin-Benson drain was then placed adjacent to the gastrojejunostomy and taken out through the subcostal trocar site. With no further problems noted, trocars were removed and the peritoneal cavity deflated. Incisions were closed with some 4-0 Vicryl skin stitch, which was also used to affix the drain. The patient was taken to the recovery room in satisfactory condition. Physician assistant director of nursing, Renetta Tsai, played an essential role in assisting in this case, helping to position the patient, retract structures as needed, as well as suturing and cutting sutures when indicated. Her presence improved patient safety and decreased the operative time. Cem Mesa MD /[id number]
== END 2017-07-05 09:40 | disposition home or self-care (01) | DRG 403 ==
LOC: JP.SDS 05:27 → JP.MS 05:27 → EDSTATUS 07:15 → JP.2SS 10:00
PROVIDERS: ADMIT Surgery; ATTEND Surgery
PROC: 0D164ZA Bypass Stomach to Jejunum, Percutaneous Endoscopic Approach (ICD-10-PCS; principal; 2017-07-03)
PROC: 0BQT4ZZ Repair Diaphragm, Percutaneous Endoscopic Approach (ICD-10-PCS; 2017-07-03)
PROC: 0WBC4ZX Excision of Mediastinum, Percutaneous Endoscopic Approach, Diagnostic (ICD-10-PCS; 2017-07-03)
PROC: 3E0T3BZ Introduction of Anesthetic Agent into Peripheral Nerves and Plexi, Percutaneous Approach (ICD-10-PCS; 2017-07-03)
PROC: 0FB24ZX Excision of Left Lobe Liver, Percutaneous Endoscopic Approach, Diagnostic (ICD-10-PCS; 2017-07-03)
PROC: 0DB94ZX Excision of Duodenum, Percutaneous Endoscopic Approach, Diagnostic (ICD-10-PCS; 2017-07-03)
DX: E66.01 Morbid (severe) obesity due to excess calories (principal); Z68.41 Body mass index [BMI] 40.0-44.9, adult; R16.0 Hepatomegaly, not elsewhere classified; K76.0 Fatty (change of) liver, not elsewhere classified; K44.9 Diaphragmatic hernia without obstruction or gangrene; R33.8 Other retention of urine; E78.5 Hyperlipidemia, unspecified; I10 Essential (primary) hypertension; Z79.84 Long term (current) use of oral hypoglycemic drugs; E11.42 Type 2 diabetes mellitus with diabetic polyneuropathy; Z98.1 Arthrodesis status; Z95.5 Presence of coronary angioplasty implant and graft; Z79.82 Long term (current) use of aspirin; Z88.8 Allergy status to other drugs, medicaments and biological substances; D17.4 Benign lipomatous neoplasm of intrathoracic organs; K59.8 Other specified functional intestinal disorders
CPT/HCPCS: 36415; 74240; 74240-26; 82962; 83036; 83735; 83880; 84100; 86850; 86900; 86901; 88304; 88307; 88313; 94640; 94762; A9270-GY; C9113; J0171; J0330; J0694; J1100; J1644; J2001; J2405; J2704; J2710; J2795; J3010; J3411; J3420; J7030; J7042; J7050; J7120; J7620; Q9967